=== PATIENT | female | born 1985 | race Caucasian/White ===

== ENCOUNTER 2023-07-13 12:36 | Outpatient (CLI) | payer OTHER ==
[~2023-07-13 12:36] MED LIST: Magnevist 469MG/ML 20 ML VIAL ONE
== END 2023-07-13 12:37 | disposition home or self-care (01) ==
LOC: BICMRI 12:36
PROVIDERS: ATTEND Radiology Diagnostic Neuroimaging
DX: G40.909 Epilepsy, unspecified, not intractable, without status epilepticus (principal)
CPT/HCPCS: 70553; A9579